=== PATIENT | female | born 1995 | race Caucasian/White ===

== ENCOUNTER 2020-03-13 10:04 | Inpatient (IN) | payer OTHER ==
[~2020-03-13] VITALS: Ht 160 cm; Wt 64.9 kg
[2020-03-13 12:17] LABS: BASOPHILS % (AUTO) 0.4 % (0.0-2.0); EOSINOPHILS % (AUTO) 6.9 % (1.0-6.0); HEMATOCRIT 42.4 % (36-46); HEMOGLOBIN 14.8 g/dL (12.0-16.0); LYMPHOCYTES # (AUTO) 1.8 K/uL (1.0-4.8); LYMPHOCYTES % (AUTO) 26.4 % (22.0-44.0); MEAN CORPUSCULAR HEMOGLOBIN 33.1 pg (26.0-34.0); MEAN CORPUSCULAR HGB CONC 34.9 G/dL (31.0-37.0); MEAN CORPUSCULAR VOLUME 95 fL (80-100); MONOCYTES # (AUTO) 0.5 K/uL (0.1-1.0); NEUTROPHILS % (AUTO) 59.3 % (40.0-70.0); PLATELET COUNT (AUTO) 189 K/uL (150-450); RED BLOOD CELL COUNT(AUTO) 4.47 MIL/uL (4.00-5.20); RED CELL DISTRIBUTION WIDTH 12.8 % (11.5-14.5)
[2020-03-13 12:31] LABS: ANION GAP 14 mmol/L (8-16); CALCIUM, TOTAL 8.9 mg/dL (8.8-10.5); CARBON DIOXIDE 21 mmol/L (22-29); CHLORIDE 104 mmol/L (98-107); CREATININE 0.65 mg/dL (0.60-1.30); GLOMERULAR FILTR. RATE CALC > 60 mL/min (>60); GLUCOSE,RANDOM 89 mg/dL (70-110); POTASSIUM 3.6 mmol/L (3.5-5.1); SODIUM SERUM 139 mmol/L (136-145); UREA NITROGEN, BLOOD 2 mg/dL (7-18)
[2020-03-13 12:43] LABS: ALANINE AMINOTRANSFERASE 19 U/L (12-78); ALBUMIN 4.1 g/dL (3.4-5.0); ALKALINE PHOSPHATASE 65 U/L (46-116); ASPARTATE AMINOTRANSFERASE 13 U/L (15-37); BILIRUBIN,TOTAL 0.3 mg/dL (0.1-1.0); HCG,QUANTITATIVE 1 mIU/mL (0-6); TOTAL PROTEIN, SERUM 6.8 g/dL (6.4-8.2)
[2020-03-13] MEDS ORDERED: BACITRACIN 0.9 GM PACKET OINTMENT TP ONE (12:45)
[2020-03-13] MEDS ORDERED: LIDOCAINE 1% 10 ML VIAL INJ ONE (12:45)
[2020-03-13] MEDS ORDERED: DOXYCYCLINE HYCLATE 100 MG TABLET PO ONE (13:41)
[2020-03-13] MEDS ORDERED: CEPHALEXIN MONOHYDRATE 500 MG CAPSULE PO ONE (13:45)
[2020-03-13] MEDS ORDERED: MULTIVITAMINS WITH MINERALS, THERAPEUTIC TABLET PO SCH (13:45)
[2020-03-13] MEDS ORDERED: ChlordiazePOXIDE HCL 25 MG CAPSULE PO PRN (13:45)
[2020-03-13] MEDS ORDERED: CYANOCOBALAMIN 1,000 MCG/ML VIAL IM ONE (13:45)
[2020-03-13] MEDS ORDERED: HALOPERIDOL 5 MG TABLET PO PRN (13:45)
[2020-03-13 13:50] LABS: COVID AG,FIA SOURCE NASOPHARYNGEAL
[2020-03-13 14:32] LABS: AMPHET/METH SCREEN,URINE POSITIVE (NEGATIVE); BARBITURATE SCREEN, URINE NEGATIVE (NEGATIVE); BENZODIAZEPINES SCREEN,URINE NEGATIVE (NEGATIVE); CANNABINOID SCREEN,URINE POSITIVE (NEGATIVE); COCAINE SCREEN,URINE NEGATIVE (NEGATIVE); METHADONE SCREEN, URINE NEGATIVE (NEGATIVE); OPIATE SCREEN,URINE NEGATIVE (NEGATIVE); PHENCYCLIDINE SCREEN,URINE NEGATIVE (NEGATIVE)
[2020-03-13] MEDS ORDERED: PETROLATUM,WHITE 28 GM JELLY TP PRN (16:00)
[2020-03-13] MEDS ORDERED: MAGNESIUM HYDROXIDE SUSPENSION 30 ML UDCUP PO PRN (16:00)
[2020-03-13] MEDS ORDERED: LOPERAMIDE HCL 2 MG CAPSULE PO PRN (16:00)
[2020-03-13] MEDS ORDERED: ONDANSETRON HCL 4 MG TABLET PO PRN (16:00)
[2020-03-13] MEDS ORDERED: CloNIDine HCL 0.1 MG TABLET PO PRN (16:00)
[2020-03-13] MEDS ORDERED: GuaiFENesin/D-METHORPHAN [SUGAR-FREE] 200-20MG/10 ML SYRUP UDCUP PO PRN (16:00)
[2020-03-13] MEDS ORDERED: ALBUTEROL SULFATE HFA 90 MCG/PUFF 8 GM INHALER IH PRN (16:00)
[2020-03-13] MEDS ORDERED: DOCUSATE SODIUM 100 MG CAPSULE PO PRN (16:00)
[2020-03-13] MEDS ORDERED: MAG HYDROX/AL HYDROX/SIMETH ES 30 ML SUSPENSION UDCUP PO PRN (16:00)
[2020-03-13] MEDS: THIAMINE 100 MG TABLET PO SCH (16:10)
[2020-03-13 18:18] VITALS: BP 121/86
[2020-03-13 18:20] VITALS: BP 121/86
[2020-03-13 18:45] VITALS: BP 119/88
[2020-03-13 20:51] VITALS: BP 136/85
[2020-03-13] MEDS: IBUPROFEN 400 MG TABLET PO PRN (20:51)
[2020-03-13] MEDS: NICOTINE 14 MG/24 HOUR PATCH TD PRN (21:53)
[2020-03-13] MEDS: ZOLPIDEM TARTRATE 10 MG TABLET PO PRN (21:54)
[2020-03-14 06:32] VITALS: BP 113/65
[2020-03-14] MEDS: ACETAMINOPHEN 325 MG TABLET PO PRN (06:32)
[2020-03-14] MEDS ORDERED: ChlordiazePOXIDE HCL 25 MG CAPSULE PO PRN (07:00)
[2020-03-14 07:19] LABS: FREE T4 (FREE THYROXINE) 1.11 ng/dL (0.76-1.46); THYROID STIMULATING HORMONE 1.23 uIU/mL (0.36-3.74)
[2020-03-14 08:00] VITALS: BP 108/64
[2020-03-14] MEDS: THIAMINE 100 MG TABLET PO SCH ×2 (08:26→16:04)
[2020-03-14] MEDS: ChlordiazePOXIDE HCL 25 MG CAPSULE PO SCH ×4 (08:26→20:20)
[2020-03-14] MEDS: FOLIC ACID 1 MG TABLET PO SCH (08:26)
[2020-03-14 11:30] VITALS: BP 117/79
[2020-03-14 12:15] VITALS: BP 117/79
[2020-03-14] MEDS: IBUPROFEN 400 MG TABLET PO PRN (12:16)
[2020-03-14 16:00] VITALS: BP 106/63
[2020-03-14] MEDS: FLUoxetine HCL 20 MG CAPSULE PO SCH (16:04)
[2020-03-14] MEDS: BACITRACIN 28 GM OINTMENT TP SCH (17:05)
[2020-03-14 18:25] VITALS: BP 106/63
[2020-03-14] MEDS: ZOLPIDEM TARTRATE 10 MG TABLET PO PRN (21:45)
[2020-03-15] MEDS: ACETAMINOPHEN 325 MG TABLET PO PRN (08:11)
[2020-03-15] MEDS: FLUoxetine HCL 20 MG CAPSULE PO SCH (08:11)
[2020-03-15] MEDS: THIAMINE 100 MG TABLET PO SCH ×2 (08:11→16:18)
[2020-03-15] MEDS: ChlordiazePOXIDE HCL 25 MG CAPSULE PO SCH ×4 (08:11→20:10)
[2020-03-15] MEDS: FOLIC ACID 1 MG TABLET PO SCH (08:12)
[2020-03-15 08:34] VITALS: BP 108/64
[2020-03-15 08:36] VITALS: BP 98/59
[2020-03-15] MEDS: BACITRACIN 28 GM OINTMENT TP SCH ×2 (09:00→16:18)
[2020-03-15] MEDS: NICOTINE 14 MG/24 HOUR PATCH TD PRN (11:59)
[2020-03-15 16:12] VITALS: BP 113/73
[2020-03-15 17:11] VITALS: BP 113/73
[2020-03-15] MEDS: ZOLPIDEM TARTRATE 10 MG TABLET PO PRN (23:30)
[2020-03-16 03:20] VITALS: BP 115/77
[2020-03-16 03:26] VITALS: BP 115/77
[2020-03-16] MEDS: ACETAMINOPHEN 325 MG TABLET PO PRN (03:26)
[2020-03-16] MEDS ORDERED: ChlordiazePOXIDE HCL 10 MG CAPSULE PO PRN (07:00)
[2020-03-16] MEDS: NICOTINE 14 MG/24 HOUR PATCH TD PRN (07:57)
[2020-03-16] MEDS: FLUoxetine HCL 20 MG CAPSULE PO SCH (07:57)
[2020-03-16] MEDS: THIAMINE 100 MG TABLET PO SCH (07:57)
[2020-03-16] MEDS: FOLIC ACID 1 MG TABLET PO SCH (07:57)
[2020-03-16] MEDS: BACITRACIN 28 GM OINTMENT TP SCH (08:00)
[2020-03-16] MEDS: ChlordiazePOXIDE HCL 10 MG CAPSULE PO SCH ×2 (08:21→12:26)
[2020-03-16 08:25] VITALS: BP 131/81
[2020-03-16 08:37] VITALS: BP 131/81
[2020-03-16] MEDS ORDERED: FLUO-191 PO (11:44)
[2020-03-17] MEDS ORDERED: ChlordiazePOXIDE HCL 10 MG CAPSULE PO PRN (07:00)
== END 2020-03-16 13:00 | disposition home or self-care (01) | DRG 885 ==
LOC: EMS 10:07 → 3EC 13:39 → UNDOADMIN 15:11 → 3EC 15:11
PROVIDERS: ADMIT Psychiatry & Neurology Child & Adolescent Psychiatry; ATTEND Psychiatry & Neurology Child & Adolescent Psychiatry
PROC: 0HQDXZZ Repair Right Lower Arm Skin, External Approach (ICD-10-PCS; principal; 2020-03-13)
DX: F33.2 Major depressive disorder, recurrent severe without psychotic features (principal); R45.851 Suicidal ideations; S51.811A Laceration without foreign body of right forearm, initial encounter; R00.0 Tachycardia, unspecified; F10.10 Alcohol abuse, uncomplicated; F19.10 Other psychoactive substance abuse, uncomplicated; F15.10 Other stimulant abuse, uncomplicated; F12.10 Cannabis abuse, uncomplicated; X78.9XXA Intentional self-harm by unspecified sharp object, initial encounter; Y92.89 Other specified places as the place of occurrence of the external cause; Y93.89 Activity, other specified; Y99.8 Other external cause status; Z79.899 Other long term (current) drug therapy; Z03.818 Encounter for observation for suspected exposure to other biological agents ruled out
CPT/HCPCS: 74022; 84439; 84443; 87426; G0480; J3420; J3490

== ENCOUNTER 2021-09-21 15:42 | Inpatient (IN) | payer MEDICAID, OTHER ==
[~2021-09-21] VITALS: Ht 160 cm; Wt 49.5 kg
[~2021-09-21 15:42] MED LIST: FLUO-177 PO
[2021-09-21 16:18] LABS: BASOPHILS % (AUTO) 0.6 % (0.0-2.0); EOSINOPHILS % (AUTO) 4.9 % (1.0-6.0); HEMATOCRIT 42.4 % (36-46); HEMOGLOBIN 14.5 g/dL (12.0-16.0); LYMPHOCYTES # (AUTO) 1.6 K/uL (1.0-4.8); LYMPHOCYTES % (AUTO) 14.5 % (22.0-44.0); MEAN CORPUSCULAR HEMOGLOBIN 30.9 pg (26.0-34.0); MEAN CORPUSCULAR HGB CONC 34.1 G/dL (31.0-37.0); MEAN CORPUSCULAR VOLUME 91 fL (80-100); MONOCYTES # (AUTO) 0.7 K/uL (0.1-1.0); MONOCYTES % (AUTO) 6.7 % (2.0-9.0); NEUTROPHILS # (AUTO) 7.8 K/uL (1.8-7.7); NEUTROPHILS % (AUTO) 73.3 % (40.0-70.0); PLATELET COUNT (AUTO) 234 K/uL (150-450); RED BLOOD CELL COUNT(AUTO) 4.68 MIL/uL (4.00-5.20); RED CELL DISTRIBUTION WIDTH 13.7 % (11.5-14.5)
[2021-09-21 16:56] LABS: ANION GAP 13 mmol/L (8-16); CALCIUM, TOTAL 9.3 mg/dL (8.8-10.5); CARBON DIOXIDE 24 mmol/L (22-29); CHLORIDE 105 mmol/L (98-107); CREATININE 0.87 mg/dL (0.60-1.30); GLOMERULAR FILTR. RATE CALC > 60 mL/min (>60); GLUCOSE,RANDOM 86 mg/dL (70-110); POTASSIUM 3.9 mmol/L (3.5-5.1); SODIUM SERUM 142 mmol/L (136-145); UREA NITROGEN, BLOOD 12 mg/dL (7-18)
[2021-09-21 17:02] LABS: ALANINE AMINOTRANSFERASE 21 U/L (12-78); ALBUMIN 4.5 g/dL (3.4-5.0); ALKALINE PHOSPHATASE 75 U/L (46-116); ASPARTATE AMINOTRANSFERASE 13 U/L (15-37); BILIRUBIN,TOTAL 0.4 mg/dL (0.1-1.0); TOTAL PROTEIN, SERUM 7.8 g/dL (6.4-8.2)
[2021-09-21 17:02] LABS: AMPHET/METH SCREEN,URINE POSITIVE (NEGATIVE); BARBITURATE SCREEN, URINE NEGATIVE (NEGATIVE); BENZODIAZEPINES SCREEN,URINE NEGATIVE (NEGATIVE); CANNABINOID SCREEN,URINE POSITIVE (NEGATIVE); COCAINE SCREEN,URINE NEGATIVE (NEGATIVE); METHADONE SCREEN, URINE NEGATIVE (NEGATIVE); OPIATE SCREEN,URINE NEGATIVE (NEGATIVE)
[2021-09-21 17:07] LABS: PHENCYCLIDINE SCREEN,URINE NEGATIVE (NEGATIVE)
[2021-09-21] MEDS ORDERED: HydrOXYzine PAMOATE 50 MG CAPSULE PO PRN (19:00)
[2021-09-21] MEDS ORDERED: MAG HYDROX/AL HYDROX/SIMETH ES 30 ML SUSPENSION UDCUP PO PRN (19:00)
[2021-09-21] MEDS ORDERED: LOPERAMIDE HCL 2 MG CAPSULE PO PRN (19:00)
[2021-09-21] MEDS ORDERED: ZOLPIDEM TARTRATE 10 MG TABLET PO PRN (19:00)
[2021-09-21] MEDS ORDERED: LORazepam 2 MG TABLET PO PRN (19:00)
[2021-09-21] MEDS ORDERED: PROMETHAZINE HCL 25 MG TABLET PO PRN (19:00)
[2021-09-21] MEDS ORDERED: TUBERCULIN, PURIFIED PROTEIN DERIVATIVE 5 TU/0.1 ML SYRINGE ID ONE (19:00)
[2021-09-21] MEDS ORDERED: GuaiFENesin/D-METHORPHAN [SUGAR-FREE] 200-20MG/10 ML SYRUP UDCUP PO PRN (19:00)
[2021-09-21] MEDS ORDERED: ACETAMINOPHEN 325 MG TABLET PO PRN (19:00)
[2021-09-21] MEDS ORDERED: MAGNESIUM HYDROXIDE SUSPENSION 30 ML UDCUP PO PRN (19:00)
[2021-09-21] MEDS ORDERED: QUEtiapine FUMARATE 100 MG TABLET PO PRN (19:00)
[2021-09-21 19:21] LABS: COVID AG,FIA SOURCE NASAL SWAB
[2021-09-22 03:10] VITALS: BP 122/64
[2021-09-22 03:30] VITALS: BP 122/64
[2021-09-22 08:07] LABS: HEMOGLOBIN A1C 5.1 % (3.8-5.6)
[2021-09-22 08:14] LABS: CHOL/HDL RATIO 1.8 (3.9-5.7); FREE T4 (FREE THYROXINE) 1.18 ng/dL (0.76-1.46); THYROID STIMULATING HORMONE 0.6 uIU/mL (0.36-3.74)
[2021-09-22] MEDS: FOLIC ACID 1 MG TABLET PO SCH (11:24)
[2021-09-22] MEDS: MULTIVITAMINS WITH MINERALS, THERAPEUTIC TABLET PO SCH (11:24)
[2021-09-22] MEDS: FLUoxetine HCL 20 MG CAPSULE PO SCH (11:24)
[2021-09-22] MEDS: THIAMINE 100 MG TABLET PO SCH ×2 (11:24→16:15)
[2021-09-22] MEDS: OMEGA-3/DHA/EPA/FISH OIL 1,000 MG CAPSULE PO SCH (11:24)
[2021-09-22] MEDS: NALTREXONE HCL 50 MG TABLET PO SCH (11:24)
[2021-09-22] MEDS: MELATONIN 5 MG TABLET PO SCH (20:11)
[2021-09-22] MEDS: NICOTINE 21 MG/24 HOUR PATCH TD SCH (20:30)
[2021-09-23 08:22] VITALS: BP 104/70
[2021-09-23] MEDS ORDERED: NICOTINE 21 MG/24 HOUR PATCH TD SCH (09:00)
[2021-09-23] MEDS: NALTREXONE HCL 50 MG TABLET PO SCH (09:26)
[2021-09-23] MEDS: THIAMINE 100 MG TABLET PO SCH ×2 (09:26→16:38)
[2021-09-23] MEDS: FLUoxetine HCL 20 MG CAPSULE PO SCH (09:26)
[2021-09-23] MEDS: FOLIC ACID 1 MG TABLET PO SCH (09:26)
[2021-09-23] MEDS: OMEGA-3/DHA/EPA/FISH OIL 1,000 MG CAPSULE PO SCH (09:27)
[2021-09-23] MEDS: MULTIVITAMINS WITH MINERALS, THERAPEUTIC TABLET PO SCH (09:27)
[2021-09-23] MEDS: NICOTINE 21 MG/24 HOUR PATCH TD SCH (09:34)
[2021-09-23 16:34] VITALS: BP_SYST 108; BP_SYST 118; BP_DIAS 70; BP_DIAS 78
[2021-09-23] MEDS ORDERED: PROZ20 PO (18:49)
[2021-09-23] MEDS ORDERED: MELA5TAB40 PO (18:49)
[2021-09-23] MEDS ORDERED: NALT50TA PO (18:49)
[2021-09-23] MEDS ORDERED: OMEG-108 PO (18:49)
[2021-09-23] MEDS: MELATONIN 5 MG TABLET PO SCH (20:06)
[2021-09-24 08:18] VITALS: BP 109/65
[2021-09-24] MEDS: THIAMINE 100 MG TABLET PO SCH (08:19)
[2021-09-24] MEDS: FOLIC ACID 1 MG TABLET PO SCH (08:19)
[2021-09-24] MEDS: NALTREXONE HCL 50 MG TABLET PO SCH (08:19)
[2021-09-24] MEDS: MULTIVITAMINS WITH MINERALS, THERAPEUTIC TABLET PO SCH (08:19)
[2021-09-24] MEDS: FLUoxetine HCL 20 MG CAPSULE PO SCH (08:19)
[2021-09-24] MEDS: OMEGA-3/DHA/EPA/FISH OIL 1,000 MG CAPSULE PO SCH (08:19)
[2021-09-24] MEDS: NICOTINE 21 MG/24 HOUR PATCH TD SCH (09:00)
== END 2021-09-24 10:05 | disposition home or self-care (01) | DRG 751 ==
LOC: EMS 15:49 → 3EC 09-22 02:00
PROVIDERS: ADMIT Psychiatry & Neurology Psychiatry; ATTEND Psychiatry & Neurology Psychiatry
DX: F33.2 Major depressive disorder, recurrent severe without psychotic features (principal); F25.9 Schizoaffective disorder, unspecified; F17.210 Nicotine dependence, cigarettes, uncomplicated; Z96.649 Presence of unspecified artificial hip joint; Z96.652 Presence of left artificial knee joint; F15.10 Other stimulant abuse, uncomplicated; Z20.822 Contact with and (suspected) exposure to COVID-19; Z55.9 Problems related to education and literacy, unspecified; Z59.00 Homelessness unspecified; Z63.9 Problem related to primary support group, unspecified; Z65.3 Problems related to other legal circumstances; Z91.52 Personal history of nonsuicidal self-harm
CPT/HCPCS: 80053; 80061; 83036; 84439; 84443; 84703; 85025; 86592; 99285; G0480; Q9967